=== PATIENT | female | born 1975 ===

== ENCOUNTER 2022-09-26 14:51 | Emergency (ER) | payer BC ==
[~2022-09-26] VITALS: Ht 154.9 cm; Wt 72.6 kg
[2022-09-26 15:22] LABS: HEMATOCRIT 38.8 % (31.2-41.9); MEAN CORPUSCULAR HEMOGLOBIN 32.4 uug (24.7-32.8); MEAN CORPUSCULAR VOLUME 96.1 fL (75.5-95.3); PLATELET COUNT (AUTO) 199 K/uL (179-408)
[2022-09-26 15:36] LABS: ALANINE AMINOTRANSFERASE 18 U/L (14-59); ALKALINE PHOSPHATASE 53 U/L (50-136); ASPARTATE AMINOTRANSFERASE 14 U/L (15-37); BILIRUBIN,DIRECT 0.2 mg/dL (0.0-0.2); BILIRUBIN,TOTAL 0.2 mg/dL (0.2-1.0); CARBON DIOXIDE 27 mmol/L (21-32); CHLORIDE 101 mmol/L (98-107); CREATININE 0.7 mg/dL (0.6-1.3); GLUCOSE 100 mg/dL (74-106); POTASSIUM 4.1 mmol/L (3.5-5.1); TOTAL PROTEIN, SERUM 6.8 g/dL (6.4-8.2); UREA NITROGEN, BLOOD 13 mg/dL (7-18)
[2022-09-26 15:37] LABS: ACETAMINOPHEN < 2.0 ug/mL (10-30)
[2022-09-26 15:40] LABS: ETHANOL < 3 MG/DL (0-0)
--- NOTE | 2022-09-26 15:45 | NUR ---
MARQUES spoke with the pt and state they are going to place the pt on a 5250 hold, nursing fishing tool supervisor notified for 1:1 sitter.
[2022-09-26] MEDS ORDERED: ACETAMINOPHEN 325 MG TABLET ONE (17:40)
[2022-09-26 17:43] LABS: *BILIRUBIN,URIN NEGATIVE (NEGATIVE); *BLOOD, URINE NEGATIVE (NEGATIVE); *CLARITY,URINE CLEAR (CLEAR); *COLOR,URINE YELLOW (YELLOW); *KETONES,URINE NEGATIVE (NEGATIVE); *UROBILINOGEN,URINE 0.2 E.U./dl (NORMAL); LEUKOCYTE ESTERASE ,URINE NEGATIVE (NEGATIVE); NITRITE, URINE NEGATIVE (NEGATIVE); PH,URINE 7.5 (5.0-8.0); UGLUCOSE NEGATIVE (NEGATIVE)
[2022-09-26 17:44] LABS: *AMPHETAMINE, URINE POSITIVE (NEGATIVE); *CANNABINOID, URINE POSITIVE (NEGATIVE); *COCCAINE, URINE NEGATIVE (NEGATIVE); *OPIATE, URINE NEGATIVE (NEGATIVE); *PHENCYCLIDINE SCREEN,URINE NEGATIVE (NEGATIVE)
[2022-09-26] MEDS ORDERED: ACETAMINOPHEN 325 MG TABLET PO ONE (17:45)
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
--- NOTE | 2022-09-26 19:48 | NUR ---
Verbal report given to Ruel HELM. Patient is stable on the stretcher in the lowest position, 1:[address] and awaiting mental health evaluation.
[2022-09-26] MEDS ORDERED: ALBUTEROL SULFATE 8 GM HFA.AER.AD IH PRN (20:30)
[2022-09-26] MEDS ORDERED: FLUTICASONE/SALMETEROL 250/50 INHALER INH SCH (20:30)
[2022-09-26] MEDS ORDERED: FLUTICASONE/VILANTEROL 1 EACH BLST.W.DEV ONE (21:11)
--- NOTE | 2022-09-27 04:56 | NUR ---
Called Alexandria Sauceda [facility] for pt psych evaluation.
[2022-09-27] MEDS ORDERED: OLANZAPINE 5 MG TABLET PO ONE (05:15)
[2022-09-27] MEDS ORDERED: HALOPERIDOL 0.5 MG TABLET PO ONE (05:15)
[2022-09-27] MEDS ORDERED: OLANZAPINE 5 MG TABLET ONE (05:32)
[2022-09-27] MEDS ORDERED: HALOPERIDOL 5 MG TABLET ONE (05:32)
[2022-09-27] MEDS ORDERED: LORAZEPAM 0.5 MG TABLET PO ONE (06:30)
[2022-09-27] MEDS ORDERED: LORAZEPAM 1 MG TABLET ONE (06:46)
--- NOTE | 2022-09-27 07:50 | NUR ---
Janet palacio in ED - 09/27/22 at 0753 by FRANCHESCA [facility] Pt will be admitted to [facility] under the care of Dr. Wells and Eddie HELM. extension #[id number].
--- NOTE | 2022-09-27 07:53 | NUR ---
Talked to Alisa from [facility] about pt being medically clear. Pt will be admitted to [address] under the care of Dr. Wells and Eddie RN. extension #[id number].
--- NOTE | 2022-09-27 08:04 | NUR ---
Shimon will pick-up the pt between [id number] to [facility].
--- NOTE | 2022-09-27 08:53 | NUR ---
Called [facility]. Gave Report to VOLODYMYR Morgan.
[2022-09-27] MEDS ORDERED: DIVALPROEX ER 500 MG TAB.SR.24H PO SCH (09:00)
--- NOTE | 2022-09-27 09:00 | NUR ---
Pt refused to eat breakfast.
--- NOTE | 2022-09-27 10:15 | NUR ---
Encouraged the pt to eat, pt refused again.
--- NOTE | 2022-09-27 11:00 | NUR ---
Patient woke up to eat.
--- NOTE | 2022-09-27 11:15 | NUR ---
Patient was transferred to [facility] by two alteration tailor apprentice JUSTEN.
== END 2022-09-27 11:15 ==
LOC: ER 14:53
DX: R45.851 Suicidal ideations (principal); T43.652A Poisoning by methamphetamines intentional self-harm, initial encounter; T43.212A Poisoning by selective serotonin and norepinephrine reuptake inhibitors, intentional self-harm, initial encounter; F15.10 Other stimulant abuse, uncomplicated; Y92.009 Unspecified place in unspecified non-institutional (private) residence as the place of occurrence of the external cause; F31.9 Bipolar disorder, unspecified; F25.9 Schizoaffective disorder, unspecified; Z88.0 Allergy status to penicillin; Z91.030 Bee allergy status; Z91.040 Latex allergy status; Z20.822 Contact with and (suspected) exposure to COVID-19
CPT/HCPCS: 36415; 85025; A4663; G0480